=== PATIENT | female | born 1955 | race Caucasian/White ===

== ENCOUNTER 2017-05-16 11:58 | Emergency (ER) | payer BC ==
[~2017-05-16] VITALS: Ht 157.5 cm; Wt 61.2 kg
--- NOTE | ~2017-05-16 | EKG ---
PATIENT: JOSE REYES UNIT #: [id number] Ventricular Rate: 71 BPM Atrial Rate: 71 BPM P-R Interval: 138 ms QRS Duration: 76 ms Q-T Interval: 380 ms QTC Calculation(Bezet): 412 ms P [place]: 70 degrees Calculated R [place]: 27 degrees Calculated T [place]: 36 degrees Diagnosis Line: Normal sinus rhythm Diagnosis Line: Normal ECG Diagnosis Line: No previous ECGs available Diagnosis Line: Confirmed by ASHLEY MANDEL MD ([id number]) on Diagnosis Line: 05/17/2017 11:35:15 AM INTERPRETING MD: TEQUILA DUCKWORTH
--- NOTE | ~2017-05-16 | CR58 ---
[facility] A Service of [facility] & [facility] RADIOLOGY TEXT RESULTS PATIENT: JOSE REYES LOCATION: [facility] : 55 UNIT #: [id number] AGE: [address]: Maikel Quesada MD SEX: F ORDER DR: [id number] [facility] [address] [place], [place] [address] [id number] E MR#: [id number] Acc #: [id number] NAME: JOSE REYES : 1955 SEX: F STUDY DATE/TIME: 05/16/2017 13:22 UNIT: [facility] ROOM: STUDY DESCRIPTION: CR Cervical Spine 2 or 3 Views Attending Physician: Maikel Quesada M.D. Ordering Physician: Ed Wil Roca M.D. Primary Care Physician: Duane George Jr., M.D. MEDICAL IMAGING REPORT This report is preliminary unless electronic signature is present EXAM Cervical spine series 05/16/2017 1322 hours HISTORY 62-year-old woman who fell last night complaining of neck pain, bruising on top of right foot since fall. COMPARISON Cervical spine series 09/30/2014 FINDINGS AP, lateral and open mouth views are performed. The cervical spine is normally aligned with normal disc heights. There is uncovertebral spurring on the left greater than right at C4-5 slightly progressive from the prior study. There is no fracture or prevertebral soft tissue swelling. IMPRESSION No fracture or malalignment. There is uncovertebral spurring C4-5 with facet arthropathy. Minimally progressive from 2014. Dictated by... Chhaya Rico M.D. THIS IS AN ELECTRONICALLY VERIFIED REPORT Chhaya Rico M.D. at 05/17/2017 9:23 AM GERMAN/wilnerr TD: 05/17/2017 01:32 JOB #: [id number] MEDICAL IMAGING REPORT Page 1 of 1 COPY
--- NOTE | ~2017-05-16 | CR127 ---
[facility] A Service of [facility] & [facility] RADIOLOGY TEXT RESULTS PATIENT: JOSE REYES LOCATION: [facility] : 55 UNIT #: [id number] AGE: [address]: Maikel Quesada MD SEX: F ORDER DR: [id number] [facility] [address] [place], [place] [address] [id number] E MR#: [id number] Acc #: [id number] NAME: JOSE REYES : 1955 SEX: F STUDY DATE/TIME: 05/16/2017 13:27 UNIT: [facility] ROOM: STUDY DESCRIPTION: CR Foot Complete Min 3 View Rt Attending Physician: Maikel Quesada M.D. Ordering Physician: Nba Roca M.D. Primary Care Physician: Duane George Jr., M.D. MEDICAL IMAGING REPORT This report is preliminary unless electronic signature is present EXAM Right foot 3 views 05/16/2017 1327 hours HISTORY 62-year-old woman who fell last night complaining of pain and bruising on top of foot since fall. COMPARISON None. FINDINGS AP, lateral and oblique views demonstrate mild dorsal soft tissue swelling. On the AP view there is a horizontal somewhat serpiginous lucency through the proximal aspect proximal phalanx of the fifth toe not seen on the oblique or lateral view. This could represent a vascular groove. A nondisplaced fracture cannot be excluded. Correlate for any focal pain or tenderness in the fifth toe. No other fracture is seen. There is no dislocation. IMPRESSION There is mild dorsal soft tissue swelling over the metatarsals. On the AP view only there is a horizontal serpiginous lucency in the proximal aspect proximal phalanx of the fifth toe not confirmed on the oblique or lateral view. This could represent a vascular groove. A fracture cannot be excluded. Suggest correlation with any focal pain or tenderness at the proximal fifth toe. Dictated by... Chhaya Rico M.D. THIS IS AN ELECTRONICALLY VERIFIED REPORT Chhaya Rico M.D. at 05/17/2017 9:23 AM SMM/rnr [facility]. [facility] A Service of [facility] & [facility] RADIOLOGY TEXT RESULTS PATIENT: JOSE REYES [facility] [id number] : 55 UNIT #: [id number] AGE: [address]: Maikel Quesada MD SEX: F ORDER DR: TD: 05/17/2017 01:36 JOB #: [id number] MEDICAL IMAGING REPORT Page 1 of 1 COPY
--- NOTE | ~2017-05-16 | CT71 ---
[facility] A Service of [facility] RADIOLOGY TEXT RESULTS PATIENT: JOSE REYES LOCATION: [facility] : 55 UNIT #: [id number] AGE: [address]: Maikel Quesada MD SEX: F ORDER DR: [id number] [facility] [address] [place], [place] [address] [id number] E MR#: [id number] Acc #: [id number] NAME: JOSE REYES. : 1955 SEX: F STUDY DATE/TIME: 05/16/2017 14:11 UNIT: [facility] ROOM: STUDY DESCRIPTION: CT Head Wo Contrast Attending Physician: Osmin Quesada M.D. Ordering Physician: Ed Doctor [id number] [facility] Primary Care Physician: Duane George Jr., M.D. MEDICAL IMAGING REPORT This report is preliminary unless electronic signature is present EXAM CT head without contrast HISTORY Syncopal episode today with trauma to the right side of the head and dizziness for 2 days. TECHNIQUE Axial noncontrast images were obtained from the skull base to the vertex. This CT exam was performed with one or more of the following radiation dose reduction techniques: automatic exposure control, adjustment of mA and/or kV according to patient size, and iterative reconstruction. FINDINGS Ventricular size and configuration are normal. There is no evidence of acute infarct or hemorrhage. There are no extraaxial fluid collections. No mass lesion or mass effect is seen. There are no skull fractures. IMPRESSION Normal noncontrast head CT. Dictated by... Bryon Vallejo M.D. THIS IS AN ELECTRONICALLY VERIFIED REPORT Bryon Vallejo M.D. at 05/17/2017 7:40 AM ERICK/clara TD: 05/17/2017 03:02 [facility] A Service of [facility] RADIOLOGY TEXT RESULTS PATIENT: JOSE REYES LOCATION: [facility] : 55 UNIT #: [id number] AGE: [address]: Maikel Quesada MD SEX: F ORDER DR: JOB #: [id number] MEDICAL IMAGING REPORT Page 1 of 1 COPY
[~2017-05-16 11:58] MED LIST: ALLERGY SHOT; AMLODIPINE BES2.5 MG PO; ASPIRIN81 M2 PO; ASTELIN137 MCG INH; DEXILANT60 MG PO; DYAZIDE 37.5/251 CAP PO; KAPIDEX; LIPITOR PO; LIVALO2 MG PO; LORTAB 7.5-5001 TAB PO; NASALIDE25 ML; PREMARIN PO; REFRESH EYE DROPS; SYNTHROID PO; SYNTHROID75 MCG PO; TYLOX 5/500 CAP1 CAP PO; ZETIA PO; ZOFRAN PO; [UNRECOGNIZED DRUG - OTHER]; [UNRECOGNIZED DRUG - OTHER]
[2017-05-16 13:13] LABS: POC - CKMB 2.1 ng/mL (0.0-7.9); POC - TROPONIN <0.05 ng/mL (<=0.05)
[2017-05-16 13:14] LABS: URINE SOURCE CLEAN CATCH
[2017-05-16 13:16] LABS: BASOPHIL% 0.4 % (0-2.5); EOSINOPHIL# 0.1 X10e3 (0-0.7); EOSINOPHIL% 1.2 % (0.0-7.0); HEMATOCRIT 41.1 % (35.0-45.0); HEMOGLOBIN 14.3 gm/dL (12.0-16.0); LYMPHOCYTE# 1.6 X10e3 (1.0-3.5); LYMPHOCYTE% 19.9 % (17.0-45.0); MEAN CELL VOLUME 87.8 FL (83-96); MEAN CORPUSCULAR HEMOGLOBIN 30.6 PG (28-34); MEAN CORPUSCULAR HGB CONC 34.9 g/dL (30-36); MEAN PLATELET VOLUME 8.7 FL (6.5-11.5); MONOCYTE# 0.6 X10e3 (0-1.0); MONOCYTE% 7.9 % (3.0-12.0); NEUTROPHIL# 5.5 X10e3 (1.5-7.1); NEUTROPHIL% 70.6 % (40-75); PLATELET COUNT 235 X10e3 (140-420); RED BLOOD COUNT 4.68 X10e (3.90-5.30); RED CELL DISTRIBUTION WIDTH 13.8 % (11.0-15.5); WHITE BLOOD COUNT 7.8 X10e3 (4.0-10.5)
[2017-05-16 13:17] LABS: DIFF IND NO
[2017-05-16 13:30] LABS: URINE APPEARANCE CLEAR; URINE BILIRUBIN NEG (NEG); URINE BLOOD NEG (NEG); URINE COLOR YELLOW; URINE GLUCOSE NEG (NEG); URINE KETONE NEG (NEG); URINE LEUKOCYTE ESTERASE NEG (NEG); URINE NITRATE NEG (NEG); URINE PH 6.5 (5-8); URINE PROTEIN NEG (NEG); URINE SPECIFIC GRAVITY 1.008 (1.003-1.035); URINE UROBILINOGEN 0.2 MG/DL (NEG)
[2017-05-16 13:35] LABS: CULTURE INDICATED? NO
[2017-05-16 13:54] LABS: BUN/CREATININE RATIO 18.18; CALCIUM SERUM 9.3 mg/dL (8.4-10.2); CREATININE SERUM 1.1 mg/dL (0.6-1.4); GLOM FILT RATE Estimated 53.8 mL/min (>60); POTASSIUM 3.8 mmol/L (3.5-5.1)
== END 2017-05-16 15:57 | disposition home or self-care (01) ==
LOC: CED 11:58
PROVIDERS: Emergency Medicine
DX: S92.511A Displaced fracture of proximal phalanx of right lesser toe(s), initial encounter for closed fracture (principal); R55 Syncope and collapse; I10 Essential (primary) hypertension; F17.210 Nicotine dependence, cigarettes, uncomplicated; Z90.49 Acquired absence of other specified parts of digestive tract; Z90.710 Acquired absence of both cervix and uterus; Z90.89 Acquired absence of other organs; Z88.0 Allergy status to penicillin; Z88.1 Allergy status to other antibiotic agents; Z79.82 Long term (current) use of aspirin; Z79.899 Other long term (current) drug therapy; W18.00XA Striking against unspecified object with subsequent fall, initial encounter; Y92.89 Other specified places as the place of occurrence of the external cause
CPT/HCPCS: 29405; 36415; 70450; 72040; 73630; 80048; 81003; 82553; 84484; 85025; 93005; 99285